=== PATIENT | male | born 1995 | race American Indian/Alaskan Native ===

== ENCOUNTER 2021-04-05 11:06 | Inpatient (IN) | payer OTHER ==
[~2021-04-05] VITALS: Ht 180.3 cm; Wt 95.5 kg
[2021-04-05 13:04] LABS: RSV AMPLIFICATION NEGATIVE (NEGATIVE)
[2021-04-05 13:44] LABS: BASO % 0.2 % (0.0-1.0); EOS # 0.1 10^3/uL (0.0-0.5); EOS % 0.5 % (0.0-3.0); HEMATOCRIT 47.9 % (42.0-52.0); HEMOGLOBIN 15.8 g/dl (13.5-17.5); LYMPH # 1.5 10^3/uL (1.5-5.0); LYMPH % 10.4 % (24.0-44.0); MEAN CORPUSCULAR HEMOGLOBIN 27.8 pg (27.0-33.0); MEAN CORPUSCULAR VOLUME 84.2 fl (80.0-96.0); MONO # 1.3 10^3/uL (0.0-0.8); MONO % 8.7 % (2.0-8.0); NEUTROPHILS # 11.7 10^3/uL (1.5-8.5); NEUTROPHILS % 79.8 % (36.0-66.0); PLATELET COUNT, AUTOMATED 224 10^3/uL (150-450); RED BLOOD COUNT 5.69 10^6/uL (4.30-6.10); WHITE BLOOD COUNT 14.6 10^3/uL (4.0-10.0)
[2021-04-05 14:13] LABS: MONO SCRN NEGATIVE (NEGATIVE)
[2021-04-05 14:18] LABS: BLOOD UREA NITROGEN 11 MG/DL (7-18); CARBON DIOXIDE LEVEL 30 MEQ/L (21-32); CHLORIDE LEVEL 106 MEQ/L (98-107); CREATININE FOR GFR 0.74 MG/DL (0.70-1.30); GLOMERULAR FILTRATION RATE > 60.0 (>60); GLUCOSE, FASTING 88 MG/DL (70-100); MAGNESIUM LEVEL 2.1 MG/DL (1.8-2.4); POTASSIUM SERUM 4.7 MEQ/L (3.5-5.1); SODIUM LEVEL 141 MEQ/L (136-145)
[2021-04-05] MEDS ORDERED: ISOVUE-370 76% 100ML VIAL As Ordered ONE (14:31)
--- NOTE | 2021-04-05 15:17 | REPVR ---
PROCEDURE INFORMATION: Exam: CT Neck With Contrast Exam date and time: 04/05/2021 1:18 PM Age: 25 years old Clinical indication: Mass, lump, or swelling in neck; Left; Additional info: Left peritonsilar swelling TECHNIQUE: Imaging protocol: Computed tomography images of the neck with contrast. Radiation optimization: All CT scans at this facility use at least one of these dose optimization techniques: automated exposure control; mA and/or kV adjustment per patient size (includes targeted exams where dose is matched to clinical indication); or iterative reconstruction. Contrast material: ISOVUE 370; Contrast volume: 100 ml; Contrast route: INTRAVENOUS (IV); COMPARISON: No relevant prior studies available. FINDINGS: Paranasal sinuses: Moderate mucosal thickening in the ethmoid sinuses. Nasopharynx: Unremarkable. Oropharynx: Examination reveals marked submucosal soft tissue swelling along the left lateral wall of the oropharynx extending inferiorly into the hypopharynx consistent with severe tonsillitis. There is a well-defined hypodense nonenhancing fluid collection in the left lateral wall of the oropharynx measuring approximately 3.0 x 2.5 x 2.5 cm in dimensions consistent with a peritonsillar abscess. ENT consultation is recommended. Larynx: Unremarkable. Normal epiglottis. Retropharyngeal space: Unremarkable. Submandibular/Parotid glands: Normal. Glands are normal in size. Thyroid: Normal. No enlarged or calcified nodules. Lymph nodes: There are multiple enlarged level I and level II and level 3 lymph nodes in the neck bilaterally, left greater than right most likely reactive in etiology. Trachea: Visualized trachea is unremarkable. Lungs: Unremarkable as visualized. Bones/joints: Unremarkable. No acute fracture. Soft tissues: Unremarkable. No significant soft tissue swelling. IMPRESSION: 1. Examination reveals marked submucosal soft tissue swelling along the left lateral wall of the oropharynx extending inferiorly into the hypopharynx consistent with severe tonsillitis. There is a well-defined hypodense nonenhancing fluid collection in the left lateral wall of the oropharynx measuring approximately 3.0 x 2.5 x 2.5 cm in dimensions consistent with a peritonsillar abscess. ENT consultation is recommended. 2. There are multiple enlarged level I and level II and level 3 lymph nodes in the neck bilaterally, left greater than right most likely reactive in etiology. Electronically signed by: Raymond Loredo On 04/05/2021 15:17:53 PM
[2021-04-05] MEDS ORDERED: AMPICILLIN SOD/SULBACTAM SOD 3 GM in D5W MINI-BAG PLUS 100 ML IV ONE (15:40)
[2021-04-05] MEDS ORDERED: NS 1,000 ML IV ONE (15:50)
[2021-04-05] MEDS ORDERED: MORPHINE 4 MG/ML 1ML VIAL/SYRINGE (J2270) IV PRN (15:50)
[2021-04-05] MEDS ORDERED: KETOROLAC 30 MG/ML 1ML VIAL IV PRN (15:50)
[2021-04-05] MEDS ORDERED: HOME MED LIST COMPLETE! XX SCH (15:50)
[2021-04-05] MEDS ORDERED: GLUCAGON INJ 1MG VIAL SC PRN (15:55)
[2021-04-05] MEDS ORDERED: DEXTROSE 50% 50 ML SYRINGE IV PRN (15:55)
[2021-04-05] MEDS ORDERED: GLUCOSE 4GM CHEW TABLET PO PRN (15:55)
--- NOTE | 2021-04-05 16:36 | HPEPDOC ---
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 He admits to decreased oral intake and force himself to eat a burger with chips yesterday which took 20 minutes to chew and swallow. He denies hoarse voice, shortness of breath, weight loss , hematemesis, coffee- ground emesis, and was taking TheraFlu and NyQuil cold and flu thinking that t his was an upper respiratory infection. Due to increasing pain and difficulty even swallowing water he decided to come into the ER for evaluation. In the ER he was afebrile CT shows left-sided peritonsillar abscess ENT was consulted with recommendations to proceed with incision and drainage in the operating room patient was given 1 dose of IV Unasyn hospitalist was asked to admit the patient. PAST MEDICAL HISTORY: None PAST SURGICAL HISTORY: None SOCIAL HISTORY: Single active duty at [employer] denies recreational drug use Occasionally vapes, social alcohol use FAMILY HISTORY: Mother father alive and well in their 50s no medical problems ALLERGIES: Please see below. REVIEW OF SYSTEMS: CONSTITUTIONAL: Denies weight gain well weight loss admits to fever and chills HEENT: Complains of left ear pressure sore throat CARDIOVASCULAR: No chest pain pressure tightness shortness of breath PND orthopnea RESPIRATORY: No shortness of breath hemoptysis pleuritic chest pain fever chills or cough GASTROINTESTINAL: No nausea vomiting diarrhea complains of dysphagia and odynophagia GENITOURINARY: Denies dysuria urgency frequency admits to fever and chills SKIN: No skin rashes lymphadenopathy . MUSCULOSKELETAL: Denies any muscle pains joint pains NEUROLOGICAL: Denies any paresthesias bilateral upper lower extremity weakness changes in cognition confusion PSYCHIATRIC: Denies depression anxiety or personality disorders ENDOCRINE: Denies polyphagia polydipsia palpitations weight gain weight loss HEMATOLOGIC/LYMPHATIC: Denies history of lymphadenopathy anemia. HOME MEDICATIONS: Please see below. PHYSICAL EXAMINATION: VITAL SIGNS: See below GENERAL APPEARANCE: Awake alert oriented to person place and time no distress HEENT: No stridor positive cervical lymphadenopathy left-sided bari-tonsillar abscess no JVD CARDIOVASCULAR: S1-S2 regular rate rhythm LUNGS: Clear to auscultation no wheezing rales or rhonchi ABDOMEN: Positive bowel sounds soft nontender nondistended normoactive no rebound or guarding EXTREMITIES: No cyanosis clubbing or pitting edema LABORATORY DATA: See below. IMAGING: See below MICROBIOLOGY: Please see below. ASSESSMENT: 25-year-old male with no past medical history with social alcohol use and vaping occasionally presents emergency room with 3-day history of a diet aphasia dysphagia sore throat and left ear fullness found to have a left p eritonsillar abscess admitted for excision and drainage and IV antibiotics. PLAN: Left peritonsillar abscess -N.p.o., IV fluids, as needed morphine and as needed Toradol for pain control -Ear nose and throat surgeon Dr. Andrew Chavarria has been consulted. -Patient is medically optimized to proceed to surgery -IV Unasyn every 6 hourly -Compression stockings for DVT prophylaxis -Hypoglycemic protocol -D5 half-normal saline to prevent hypoglycemia CODE STATUS full code Diet n.p.o. IV fluids hypoglycemic protocol Vital Signs Vital Signs Date Time Temp Pulse Resp B/P (MAP) Pulse Ox O2 Delivery O2 Flow Rate FiO2 04/05/21 11:06 99.2 92 20 144/81 (102) 100 Laboratory Data Labs 24H Laboratory Tests 2 04/05/21 11:32: Coronavirus (COVID-19)(PCR) NEGATIVE, Influenza Type A (RT-PCR) NEGATIVE, In fluenza Type B (RT-PCR) NEGATIVE, Respiratory Syncytial Virus (PCR) NEGATIVE 04/05/21 13:11: Immature Granulocyte % (Auto) 0.4, Neutrophils (%) (Auto) 79.8H, Lymphocytes (%) (Auto) 10.4L, Monocytes (%) (Auto) 8.7H, Eosinophils (%) (Auto) 0.5, Basophils (%) (Auto) 0.2, Neutrophils # (Auto) 11.7H, Lymphocytes # (Auto) 1.5, Monocytes # (Auto) 1.3H, Eosinophils # (Auto) 0.1, Basophils # (Auto) 0.0, Nucleated Red Blood Cells % (auto) 0.0, Anion Gap 5L, Glomerular Filtration Rate > 60.0, Calcium Level 9.0, Magnesium Level 2.1, Monoscreen NEGATIVE CBC/BMP Laboratory Tests 04/05/21 13:11 Microbiology Microbiology 04/05/21 Group A Streptococcus Screen (ISA) - Final, Resulted 04/05/21 Group A Streptococcus Screen (ISA), Resulted Pending Home Medications No Active Prescriptions or Reported Meds Allergies Coded Allergies: No Known Allergies (Unverified , 04/05/21) A-FIB/CHADSVASC A-FIB History Current/History of A-Fib/PAF?: No Current PO Anticoag Therapy: No Age/Risk Factor Scoring CHADSVASC: CHADSVASC Response (Comments) Value Age Risk Factor Age < 65 years old 0 Gender Risk Factor Male 0 Hx of CHF No 0 Hx of HTN No 0 Hx of Stroke/TIA/or VTE No 0 Hx of Diabetes No 0 Hx of Vascular Disease No 0 Total 0 Treatment Treatment ordered: NONE ILIA MARTÍNEZ MD Apr 05, 2021 16:36
[2021-04-05] MEDS ORDERED: LIDOCAINE W/EPINEPHRINE 1% 20ML VIAL As Ordered ONE (17:29)
[2021-04-05] MEDS ORDERED: CLINDAMYCIN INJ 900MG/6ML VIAL As Ordered ONE (17:29)
[2021-04-05] MEDS ORDERED: LIDOCAINE 2% 100MG/5ML SDV (FOR ANES.) As Ordered ONE (17:42)
[2021-04-05] MEDS ORDERED: fentaNYL 100 MCG/2 ML INJECTION (J3010) As Ordered ONE (17:42)
[2021-04-05] MEDS ORDERED: MIDAZOLAM INJ 2MG/2ML VIAL (J2250 PER 1MG) As Ordered ONE (17:42)
[2021-04-05] MEDS ORDERED: ROCURONIUM BROMIDE 50 MG/5 ML VIAL As Ordered ONE (17:42)
[2021-04-05] MEDS ORDERED: dexameTHASONE 4 MG/ML 1ML VIAL (J1100 PER 1MG) As Ordered ONE (17:42)
[2021-04-05] MEDS ORDERED: propofoL 200 MG/20 ML VIAL As Ordered ONE (17:42)
[2021-04-05] MEDS ORDERED: ONDANSETRON 4MG/2ML VIAL As Ordered ONE (17:42)
[2021-04-05 18:01] LABS: C REACTIVE PROTEIN QUANTITATIV 9.12 MG/DL (0.00-0.30)
[2021-04-05 18:11] LABS: ERYTHROCYTE SEDIMENTATION RATE 3 mm/hr (0-15)
[2021-04-05] MEDS ORDERED: ACETAMINOPHEN 1000MG 100ML IV BTL (OFIRMEV) (J0131 PER 10MG) As Ordered ONE (18:22)
[2021-04-05] MEDS ORDERED: SUGAMMADEX SODIUM 500 MG/5 ML VIAL (BRIDION) As Ordered ONE (18:22)
[2021-04-05] MEDS ORDERED: ONDANSETRON 4MG/2ML VIAL IV PRN (19:15)
[2021-04-05] MEDS ORDERED: LR 1,000 ML IV SCH (19:15)
[2021-04-05] MEDS ORDERED: fentaNYL 100 MCG/2 ML INJECTION (J3010) IV PRN (19:15)
[2021-04-05] MEDS ORDERED: oxyCODONE 5MG TAB PO PRN (19:15)
[2021-04-05 22:45] VITALS: BP 133/65
[2021-04-05] MEDS: AMPICILLIN SOD/SULBACTAM SOD 1.5 GM in D5W MINI-BAG PLUS 50 ML IV SCH (23:09)
[2021-04-05] MEDS: D5W/0.45% SODIUM CHLORIDE 1,000 ML IV SCH (23:17)
[2021-04-06 02:46] VITALS: BP 98/51
[2021-04-06] MEDS: AMPICILLIN SOD/SULBACTAM SOD 1.5 GM in D5W MINI-BAG PLUS 50 ML IV SCH ×4 (04:23→21:48)
[2021-04-06] MEDS: D5W/0.45% SODIUM CHLORIDE 1,000 ML IV SCH (06:06)
[2021-04-06 06:14] VITALS: BP 118/80
--- NOTE | 2021-04-06 07:51 | RO ---
OPERATIVE NOTE DATE OF OPERATION: 04/05/2021 PREOPERATIVE DIAGNOSIS: Left peritonsillar abscess. POSTOPERATIVE DIAGNOSIS: Left peritonsillar abscess. PROCEDURE PERFORMED: Incision and drainage of left peritonsillar abscess. SURGEON: Andrew Briones MD GRAIN ORIGINATION SPECIALIST: ANESTHESIA: General CLINICAL PREAMBLE: This is a 25-year-old man who presented to the [facility] emergency department with complaints of throat pain from the left side for at least 3-4 days. He has not been taking antibiotics. Physical examination revealed swelling of the left soft palate. CT of the neck confirmed presence of left peritonsillar abscess measuring at least 3 cm in size. Management options including incision and drainage of the left peritonsillar abscess have been discussed. The patient understood and consented to the procedure. OR NARRATION: The patient was identified in preholding and brought to the operating room in stable condition. In supine position on the operating table, the patient received general anesthesia followed by orotracheal intubation without incident. The patient was prepped and draped in the usual fashion for the procedure. The Teresa-Fly mouth gag was inserted and suspended on a Dalton stand. The left soft palate was visualized and found to be diffusely edematous. Superior pole of the left tonsillar area was infiltrated with 1% lidocaine with 1:100,000 epinephrine. A mucosal incision was made using the sickle knife. A copious amount of purulent discharge was encountered. Upon entry into the peritonsillar abscess capsule using the Schnidt, swabs were obtained for C&S, gram stain and anaerobic cultures. Approximately 10 mL of abscess material were drained. 500 mL of normal saline with 900 mg of clindamycin was used to irrigate the left peritonsillar capsule. At the end of the procedure, the sponge and instrument counts were correct. No complications were encountered. Estimated blood loss was 10 mL. General anesthesia was reversed and the patient was extubated and brought to the recovery room in stable condition.
[2021-04-06 08:36] LABS: BASO % 0.1 % (0.0-1.0); HEMATOCRIT 43.2 % (42.0-52.0); HEMOGLOBIN 14.1 g/dl (13.5-17.5); LYMPH # 1.1 10^3/uL (1.5-5.0); LYMPH % 9.9 % (24.0-44.0); MEAN CORPUSCULAR HEMOGLOBIN 27.2 pg (27.0-33.0); MEAN CORPUSCULAR HGB CONC 32.6 g/dl (32.0-36.5); MEAN CORPUSCULAR VOLUME 83.4 fl (80.0-96.0); MONO # 0.6 10^3/uL (0.0-0.8); NEUTROPHILS # 9.4 10^3/uL (1.5-8.5); NEUTROPHILS % 84.5 % (36.0-66.0); PLATELET COUNT, AUTOMATED 229 10^3/uL (150-450); RED BLOOD COUNT 5.18 10^6/uL (4.30-6.10); WHITE BLOOD COUNT 11.1 10^3/uL (4.0-10.0)
[2021-04-06 09:08] LABS: BLOOD UREA NITROGEN 11 MG/DL (7-18); CALCIUM LEVEL 8.6 MG/DL (8.5-10.1); CARBON DIOXIDE LEVEL 29 MEQ/L (21-32); CHLORIDE LEVEL 103 MEQ/L (98-107); CREATININE FOR GFR 0.72 MG/DL (0.70-1.30); GLOMERULAR FILTRATION RATE > 60.0 (>60); GLUCOSE, FASTING 147 MG/DL (70-100); POTASSIUM SERUM 4.5 MEQ/L (3.5-5.1); SODIUM LEVEL 139 MEQ/L (136-145)
[2021-04-06] MEDS ORDERED: MORPHINE 30 MG TAB **MSIR PO PRN (09:25)
--- NOTE | 2021-04-06 10:18 | CR ---
CONSULTATION DATE: 04/05/2021 CHIEF COMPLAINT: Left-sided sore throat. HISTORY OF PRESENT ILLNESS: This is a 25 history of man who presented to the emergency department at [facility] complaining of a three day history of progressive worsening of left-sided sore throat. He has been receiving treatments such as antibiotics. He has no prior history of peritonsillar abscess. He has no bleeding disorders. A CT neck performed shows evidence of a large peritonsillar abscess measuring at least 3 cm in size. I was consulted to provide surgical management of the left peritonsillar abscess. PAST MEDICAL HISTORY: None. PAST SURGICAL HISTORY: None. ALLERGIES: None. MEDICATIONS: None. REVIEW OF SYSTEMS: Noncontributory. PHYSICAL EXAMINATION: On examination, patient appeared tired. EARS: Normal pinna. ORAL CAVITY: Mild trismus. Floor of the mouth nonelevated. Mobile tongue. OROPHARYNX: Diffuse swelling of the left soft palate with significant edema, mild shifting of the uvula to the right side. Posterior pharyngeal wall visible at the pharyngeal level. NECK: Trachea midline. Some jugular epigastric lymphadenopathy. IMPRESSION: This 25-year-old man has a large left peritonsillar abscess. I will arrange for incision and drainage of the abscess in the operating room on an urgent basis. PLAN: To have the patient stay overnight for intravenous (IV) antibiotic as per hospitalist management.
[2021-04-06] MEDS: MORPHINE 15 MG SA TAB PO SCH ×2 (10:33→21:47)
[2021-04-06] MEDS: KETOROLAC 30 MG/ML 1ML VIAL IV SCH ×3 (10:34→21:47)
--- NOTE | 2021-04-06 10:46 | IPNPDOC ---
Date Seen The patient was seen on 04/06/21. Progress Note SUBJECTIVE: Patient denies any fever chills overnight he is tolerating his soft diet No dysphagia still with slight odynophagia but tolerable Denies any hoarse voice or shortness of breath respiratory distress OBJECTIVE: PHYSICAL EXAMINATION: VITAL SIGNS: See below GENERAL APPEARANCE: Awake alert oriented to person place and time no distress HEENT: No stridor positive cervical lymphadenopathyno JVD CARDIOVASCULAR: S1-S2 regular rate rhythm LUNGS: Clear to auscultation no wheezing rales or rhonchi ABDOMEN: Positive bowel sounds soft nontender nondistended normoactive no rebound or guarding EXTREMITIES: No cyanosis clubbing or pitting edema LABORATORY DATA: See below. IMAGING: See below MICROBIOLOGY: Please see below. ASSESSMENT: 25-year-old male with no past medical history with social alcohol use and vaping occasionally presents emergency room with 3-day history of a diet aphasia dysphagia sore throat and left ear fullness found to have a left peritonsillar abscess admitted for excision and drainage and IV antibiotics. PLAN: Left peritonsillar abscess -Ear nose and throat surgeon Dr. Andrew Chavarria has been consulted. -Status post incision and drainage 04/05/2021 -IV Unasyn every 6 hourly day #2 -Compression stockings for DVT prophylaxis -On soft diet -Await wound cultures -Toradol 30 mg IV every 6 maximum of 5 days -MSIR as needed every 4 hourly -MS controlled release 1 5 mg twice daily -Bowel regimen -No physical training for 7 days -Discharge plan for Thursday VS, I&O, 24H, Fishbone Vital Signs/I&O Vital Signs Date Time Temp Pulse Resp B/P (MAP) Pulse Ox O2 Delivery O2 Flow Rate FiO2 04/06/21 10:33 16 04/06/21 06:14 97.7 92 118/80 (93) 97 Room Air I&O- Last 24 Hours up to 6 AM 04/06/21 06:00 Intake Total 1270 ml Balance 1270 ml Laboratory Data 24H LABS Laboratory Tests 2 04/05/21 11:32: Coronavirus (COVID-19)(PCR) NEGATIVE, Influenza Type A (RT-PCR) NEGATIVE, Influenza Type B (RT-PCR) NEGATIVE, Respiratory Syncytial Virus (PCR) NEGATIVE 04/05/21 13:11: Immature Granulocyte % (Auto) 0.4, Neutrophils (%) (Auto) 79.8H, Lymphocytes (%) (Auto) 10.4L, Monocytes (%) (Auto) 8.7H, Eosinophils (%) (Auto) 0.5, Basophils (%) (Auto) 0.2, Neutrophils # (Auto) 11.7H, Lymphocytes # (Auto) 1.5, Monocytes # (Auto) 1.3H, Eosinophils # (Auto) 0.1, Basophils # (Auto) 0.0, Nucleated Red Blood Cells % (auto) 0.0, Erythrocyte Sedimentation Rate 3, Anion Gap 5L, Glomerular Filtration Rate > 60.0, Calcium Level 9.0, Magnesium Level 2.1, C- Reactive Protein, Quantitative 9.12H, Monoscreen NEGATIVE 04/06/21 07:32: Immature Granulocyte % (Auto) 0.5, Neutrophils (%) (Auto) 84.5H, Lymphocytes (%) (Auto) 9.9L, Monocytes (%) (Auto) 5.0, Eosinophils (%) (Auto) 0.0, Basophils (%) (Auto) 0.1, Neutrophils # (Auto) 9.4H, Lymphocytes # (Auto) 1.1L, Monocytes # (Auto) 0.6, Eosinophils # (Auto) 0.0, Basophils # (Auto) 0.0, Nucleated Red Blood Cells % (auto) 0.0, Anion Gap 7L, Glomerular Filtration Rate > 60.0, Calcium Level 8.6 CBC/BMP Laboratory Tests 04/05/21 13:11 04/06/21 07:32 Microbiology Microbiology 04/05/21 Gram Stain - Final, Resulted 04/05/21 Abscess Culture, Resulted Pending 04/05/21 Anaerobic Culture, Received Pending 04/05/21 Group A Streptococcus Screen (ISA) - Final, Complete 04/05/21 Group A Streptococcus Screen (ISA) - Final, Complete ILIA MARTÍNEZ MD Apr 06, 2021 10:46
[2021-04-06] MEDS: NS 1,000 ML IV SCH ×2 (10:50→22:34)
[2021-04-06] MEDS ORDERED: SENOKOT S TAB PO PRN (10:50)
[2021-04-06] MEDS ORDERED: MOM 30ML SUSPENSION UDC PO PRN (10:50)
[2021-04-06 14:00] VITALS: BP 92/43
[2021-04-06 14:30] VITALS: BP 136/70
[2021-04-06 22:00] VITALS: BP 114/54
[2021-04-07] MEDS: AMPICILLIN SOD/SULBACTAM SOD 1.5 GM in D5W MINI-BAG PLUS 50 ML IV SCH ×4 (04:12→21:40)
[2021-04-07] MEDS: KETOROLAC 30 MG/ML 1ML VIAL IV SCH ×4 (04:12→21:40)
[2021-04-07 06:00] VITALS: BP 117/55
--- NOTE | 2021-04-07 07:29 | IPNPDOC ---
Date Seen The patient was seen on 04/07/21. Progress Note SUBJECTIVE: c/o nausea after taking po msir, but no vomiting. slight odynophagia, but tolerable 2/10 sore throat this am. no f/c. tolerating diet, but perez a little w water. no respiratory distress OBJECTIVE: PHYSICAL EXAMINATION: VITAL SIGNS: See below GENERAL APPEARANCE: Awake alert oriented to person place and time no distress no cyanosis or pallor HEENT: No stridor positive cervical lymphadenopathyno JVD CARDIOVASCULAR: S1-S2 regular rate rhythm LUNGS: Clear to auscultation no wheezing rales or rhonchi ABDOMEN: Positive bowel sounds soft nontender nondistended normoactive no reboun d or guarding EXTREMITIES: No cyanosis clubbing or pitting edema LABORATORY DATA: See below. IMAGING: See below MICROBIOLOGY: Please see below. ASSESSMENT: 25-year-old male with no past medical history with social alcohol use and vaping occasionally presents emergency room with 3-day history of a diet aphasia dysphagia sore throat and left ear fullness found to have a left peritonsillar abscess admitted for excision and drainage and IV antibiotics. PLAN: Left peritonsillar abscess -Ear nose and throat surgeon Dr. Andrew Chavarria has been consulted. -Status post incision and drainage 04/05/2021 -IV Unasyn every 6 hourly day #3 -Compression stockings for DVT prophylaxis -On soft diet -Await throat cultures: gram + gram -. no species identified yet -Toradol 30 mg IV every 6 maximum of 5 days -MSIR as needed every 4 hourly -MS controlled release 1 5 mg twice daily -Bowel regimen -No physical training for 7 days -prn antiemetics -Discharge plan for Thursday VS, I&O, 24H, [facility] Vital Signs/I&O Vital Signs Date Time Temp Pulse Resp B/P (MAP) Pulse Ox O2 Delivery O2 Flow Rate FiO2 04/07/21 06:00 99.1 58 16 117/55 (75) 99 Room Air I&O- Last 24 Hours up to 6 AM 04/07/21 06:00 Intake Total 1740 ml Balance 1740 ml Laboratory Data 24H LABS Laboratory Tests 2 04/06/21 07:32: Immature Granulocyte % (Auto) 0.5, Neutrophils (%) (Auto) 84.5H, Lymphocytes (%) (Auto) 9.9L, Monocytes (%) (Auto) 5.0, Eosinophils (%) (Auto) 0.0, Basophils (%) (Auto) 0.1, Neutrophils # (Auto) 9.4H, Lymphocytes # (Auto) 1.1L, Monocytes # (Auto) 0.6, Eosinophils # (Auto) 0.0, Basophils # (Auto) 0.0, Nucleated Red Blood Cells % (auto) 0.0, Anion Gap 7L, Glomerular Filtration Rate > 60.0, Calcium Level 8.6 CBC/BMP Laboratory Tests 04/06/21 07:32 Microbiology Microbiology 04/05/21 Gram Stain - Final, Resulted 04/05/21 Abscess Culture, Resulted Pending 04/05/21 Anaerobic Culture, Received Pending 04/05/21 Group A Streptococcus Screen (ISA) - Final, Complete 04/05/21 Group A Streptococcus Screen (ISA) - Final, Complete ILIA MARTÍNEZ MD Apr 07, 2021 07:24
[2021-04-07] MEDS ORDERED: AUGM875T28 PO (07:33)
[2021-04-07] MEDS ORDERED: MSIR30TA PO (07:33)
[2021-04-07 07:49] LABS: BASO % 0.4 % (0.0-1.0); EOS # 0.2 10^3/uL (0.0-0.5); EOS % 2.6 % (0.0-3.0); HEMATOCRIT 39.6 % (42.0-52.0); HEMOGLOBIN 12.8 g/dl (13.5-17.5); LYMPH # 2.7 10^3/uL (1.5-5.0); LYMPH % 38.4 % (24.0-44.0); MEAN CORPUSCULAR HEMOGLOBIN 27.5 pg (27.0-33.0); MEAN CORPUSCULAR HGB CONC 32.3 g/dl (32.0-36.5); MONO # 0.6 10^3/uL (0.0-0.8); MONO % 8.6 % (2.0-8.0); NEUTROPHILS # 3.5 10^3/uL (1.5-8.5); NEUTROPHILS % 49.6 % (36.0-66.0); PLATELET COUNT, AUTOMATED 204 10^3/uL (150-450); RED BLOOD COUNT 4.66 10^6/uL (4.30-6.10)
[2021-04-07 08:16] LABS: BLOOD UREA NITROGEN 17 MG/DL (7-18); C REACTIVE PROTEIN QUANTITATIV 4.47 MG/DL (0.00-0.30); CARBON DIOXIDE LEVEL 29 MEQ/L (21-32); CHLORIDE LEVEL 111 MEQ/L (98-107); CREATININE FOR GFR 0.81 MG/DL (0.70-1.30); GLOMERULAR FILTRATION RATE > 60.0 (>60); GLUCOSE, FASTING 82 MG/DL (70-100); POTASSIUM SERUM 4.9 MEQ/L (3.5-5.1); SODIUM LEVEL 143 MEQ/L (136-145)
[2021-04-07] MEDS: NS 1,000 ML IV SCH ×2 (09:00→17:09)
[2021-04-07] MEDS: MORPHINE 15 MG SA TAB PO SCH ×2 (09:10→20:15)
[2021-04-07 09:56] LABS: ERYTHROCYTE SEDIMENTATION RATE 7 mm/hr (0-15)
[2021-04-07 14:00] VITALS: BP 120/50
[2021-04-07 22:00] VITALS: BP 124/57
[2021-04-08] MEDS: NS 1,000 ML IV SCH ×2 (02:28→03:45)
[2021-04-08] MEDS: KETOROLAC 30 MG/ML 1ML VIAL IV SCH ×2 (03:44→08:23)
[2021-04-08] MEDS: AMPICILLIN SOD/SULBACTAM SOD 1.5 GM in D5W MINI-BAG PLUS 50 ML IV SCH (03:44)
[2021-04-08 06:00] VITALS: BP 107/43
[2021-04-08 06:08] LABS: BASO % 0.5 % (0.0-1.0); EOS # 0.2 10^3/uL (0.0-0.5); EOS % 4.1 % (0.0-3.0); HEMATOCRIT 41.7 % (42.0-52.0); HEMOGLOBIN 13.4 g/dl (13.5-17.5); LYMPH # 2.6 10^3/uL (1.5-5.0); MEAN CORPUSCULAR HEMOGLOBIN 27.2 pg (27.0-33.0); MEAN CORPUSCULAR HGB CONC 32.1 g/dl (32.0-36.5); MEAN CORPUSCULAR VOLUME 84.8 fl (80.0-96.0); MONO # 0.5 10^3/uL (0.0-0.8); MONO % 8.3 % (2.0-8.0); NEUTROPHILS # 2.5 10^3/uL (1.5-8.5); NEUTROPHILS % 42.8 % (36.0-66.0); PLATELET COUNT, AUTOMATED 212 10^3/uL (150-450); RED BLOOD COUNT 4.92 10^6/uL (4.30-6.10); WHITE BLOOD COUNT 5.8 10^3/uL (4.0-10.0)
[2021-04-08 06:13] LABS: BLOOD UREA NITROGEN 16 MG/DL (7-18); CALCIUM LEVEL 8.2 MG/DL (8.5-10.1); CARBON DIOXIDE LEVEL 30 MEQ/L (21-32); CHLORIDE LEVEL 112 MEQ/L (98-107); CREATININE FOR GFR 0.66 MG/DL (0.70-1.30); GLOMERULAR FILTRATION RATE > 60.0 (>60); GLUCOSE, FASTING 84 MG/DL (70-100); POTASSIUM SERUM 4.6 MEQ/L (3.5-5.1); SODIUM LEVEL 143 MEQ/L (136-145)
[2021-04-08] MEDS: MORPHINE 15 MG SA TAB PO SCH (08:23)
[2021-04-08] MEDS ORDERED: AMPICILLIN SOD/SULBACTAM SOD 1.5 GM in D5W MINI-BAG PLUS 50 ML IV ONE ×2 (09:00→14:00)
--- NOTE | 2021-04-08 13:54 | DSES ---
DISCHARGE SUMMARY DATE OF ADMISSION: 04/05/2021 DATE OF DISCHARGE: 04/08/2021 PRIMARY DISCHARGE DIAGNOSIS: 1. Peritonsillar abscess status post incision and drainage. 2. Dysphagia secondary to peritonsillar abscess. 3. Odynophagia secondary to peritonsillar abscess. DISCHARGE MEDICATIONS: 1. Augmentin 875 mg b.i.d. for 14 days. 2. Morphine sulfate 15 mg p.o. q. 4 as needed for pain. DISCHARGE INSTRUCTIONS: Activity level: No physical training for seven days per ENT surgeon, ENT follow-up within five days of discharge, primary care physician follow-up within one week. HOSPITAL COURSE: This is a 25-year-old male admitted on 02/02/2021 with a three day history of odynophagia, sore throat, dysphagia, fever and chills at home thought initially to be due to upper respiratory infection and had taken and self-administered TheraFlu and Nyquil Cold and Flu at home. The patient then presented to the Emergency Room due persistent pain and difficulty swallowing, was found to have a left sided peritonsillar abscess in the ER. Patient was medically optimized, given intravenous Zosyn, kept NPO with IV fluids and hyperglycemic protocol and sent to the OR for incision and drainage, the patient was continued on Unasyn, remained afebrile with normal white count from an admission of 14.6 to 7.0 and on discharge 5.8, Group A strep was negative. Coronavirus was negative. Throat culture abscess from the OR showed many WBCs, a few RBCs, many gram positive cocci in pairs and chains and a few gram negative rods. Patient remained afebrile with normal white count on Unasyn. He was kept on IV fluids and Toradol, Morphine as needed IV for breakthrough pain, and MSIR 15 mg q. 4 as needed. Patient is medically stable for hospital discharge with outpatient follow-up with ENT surgeon Dr. Briones. PHYSICAL EXAMINATION: VITAL SIGNS: Temperature is 98.9, pulse is 66, respiratory rate is 19, blood pressure is 107/53, 100% on room air. GENERAL: Awake, alert and oriented x3, no stridor or icterus. No jaundice. No use of respiratory accessory muscles. HEENT: Minimal pharyngeal erythema, improved cervical lymphadenopathy. LUNGS: Clear to auscultation. No wheezing, rales or rhonchi. HEART: S1 and S2, sinus rhythm. ABDOMEN: Soft, nontender, nondistended. Positive bowel sounds. EXTREMITIES: No cyanosis, clubbing or pitting edema. LABORATORY DATA/IMAGING STUDIES/MICROBIOLOGY: Please see the chart. TIME SPENT ON DISCHARGE: 30 minutes. MTDD
[2021-04-08 14:00] VITALS: BP 117/53
== END 2021-04-08 14:45 | disposition home or self-care (01) | DRG 402 ==
LOC: EDSEX 11:06 → M ED 11:06 → M ED INP 15:47 → M MS5PR 22:47
PROVIDERS: ADMIT General Practice; ATTEND General Practice
PROC: 0C9P0ZZ Drainage of Tonsils, Open Approach (ICD-10-PCS; principal; 2021-04-05 17:00)
DX: J36 Peritonsillar abscess (principal); R59.0 Localized enlarged lymph nodes; Z20.822 Contact with and (suspected) exposure to COVID-19; R13.10 Dysphagia, unspecified